=== PATIENT | male | born 1995 | race Caucasian/White ===

== ENCOUNTER 2018-09-03 03:40 | Emergency (ER) | payer SELFPAY | END 2018-09-03 05:48 | LOC: ERS 03:40 | DX: Z04.1 Encounter for examination and observation following transport accident (principal); V49.9XXA Car occupant (driver) (passenger) injured in unspecified traffic accident, initial encounter | CPT/HCPCS: 99283 ==

== ENCOUNTER 2022-02-12 11:45 | Emergency (ER) | payer SELFPAY | END 2022-02-12 12:31 | disposition home or self-care (01) | LOC: ERS 11:45 | DX: J01.90 Acute sinusitis, unspecified (principal); F17.220 Nicotine dependence, chewing tobacco, uncomplicated; Z20.822 Contact with and (suspected) exposure to COVID-19 | CPT/HCPCS: 99283; U0003; U0005 ==

== ENCOUNTER 2022-09-11 07:26 | Emergency (ER) | payer SELFPAY ==
[2022-09-11] MEDS ORDERED: Proparacaine 0.5% Opth 15 ML BOT ONE (07:48)
[2022-09-11] MEDS ORDERED: Fluorescein Opthalmic Strip ONE (07:48)
== END 2022-09-11 13:26 | disposition home or self-care (01) ==
LOC: ERS 07:26
DX: T15.01XA Foreign body in cornea, right eye, initial encounter (principal); F17.220 Nicotine dependence, chewing tobacco, uncomplicated
CPT/HCPCS: 65222